=== PATIENT | male | born 1975 | race Caucasian/White ===

== ENCOUNTER 2017-06-08 12:15 | Emergency (ER) | payer MEDICAID, OTHER ==
--- NOTE | 2017-06-08 14:14 | EDM.PDOC ---
ED HPI GENERAL MEDICAL PROBLEM - General Chief Complaint: Upper Extremity Injury/Pain Stated Complaint: RIGHT WRIST PAIN Time Seen by Provider: 06/08/17 12:21 Source of Information: Reports: Patient History Limitations: Reports: No Limitations - History of Present Illness INITIAL COMMENTS - FREE TEXT/NARRATIVE: HISTORY AND PHYSICAL: []42-year-old male presenting with right wrist pain History of Present Illness: []Patient had a fall and has had pain since. he fell last night Review of Systems: As per history of present illness and below otherwise all systems reviewed and negative. Past medical history: As per history of present illness and as reviewed below otherwise noncontributory. Surgical history: As per history of present illness and as reviewed below otherwise noncontributory. Social history: No reported history of drug or alcohol abuse. Family history: As per history of present illness and as reviewed below otherwise noncontributory. Physical exam: Alert and oriented male in questions appropriately he does look nontoxic HEENT: Atraumatic, normocehpalic, pupils reactive, negative for conjunctival pallor or scleral icterus, mucous membranes moist, throat clear, neck supple, nontender, trachea midline. Lungs: Clear to auscultation, breath sounds equal bilaterally, chest non tender. Heart: S1S2, regular, negative for clicks, rubs, or JVD. Abdomen: Soft, nondistended, nontender. Negative for masses or hepatossplenmegaly. Negative for costovertebral tenderness. Pelvis: Stable nontender. Genitourinary: Deferred. Rectal: Deferred Extremities: , negative for cords or calf pain. Radial pulse intact sensation is intact Refill less than 3 seconds Neurovascular unremarkable. Neuro: Awake, alert, oriented. Cranial nerves II through XII unremarkable. Cerebellum unremarkable. Motor and sensory unremarkable throughout. Exam nonfocal. Diagnostics: [X-ray] Therapeutics: [] Impression: [Contusion right wrist] Plan: [Splint will be applied to give support Motrin for discomfort Follow-up in [place] this week ] Definitive disposition and diagnosis as appropriate pending reevaluation and review of above. right wrist Pain Score (Numeric/FACES): 6 - Related Data Allergies Allergy/AdvReac Type Severity Reaction Status Date / Time No Known Allergies Allergy Verified 06/08/17 12:45 Home Meds: Home Meds Acetaminophen [Tylenol] 1,000 mg PO BID 06/16/14 [History] Past Medical History - Past Health History Medical/Surgical History: Denies Medical/Surgical History HEENT History: Reports: None Cardiovascular History: Reports: Hypertension Respiratory History: Reports: None Gastrointestinal History: Reports: None Genitourinary History: Reports: None Neurological History: Reports: None Psychiatric History: Reports: None Endocrine/Metabolic History: Reports: None Hematologic History: Reports: None Oncologic (Cancer) History: Reports: None Dermatologic History: Reports: None - Infectious Disease History Infectious Disease History: Reports: None - Past Surgical History Head Surgeries/Procedures: Reports: None HEENT Surgical History: Reports: None Musculoskeletal Surgical History: Reports: Other (See Below) Social & Family History - Family History Family Medical History: Noncontributory - Tobacco Use Smoking Status *Q: Never Smoker Second Hand Smoke Exposure: No - Alcohol Use Days Per Week of Alcohol Use: 0 - Recreational Drug Use Recreational Drug Use: No Review of Systems - Review of Systems Review Of Systems: ROS reveals no pertinent complaints other than HPI. ED EXAM, GENERAL - Physical Exam Exam: See Below (See dictation) Course - Vital Signs Last Recorded V/S: Last Vital Signs Temp 36.1 C 06/08/17 12:15 Pulse 107 H 06/08/17 12:15 Resp 18 06/08/17 12:15 BP 138/89 06/08/17 12:15 Pulse Ox 94 L 06/08/17 12:15 - Orders/Labs/Meds Orders: Active Orders 24 hr Category Date Time Status Wrist 2V Rt [CR] Stat Exams 06/08/17 12:43 Taken Departure - Departure Time of Disposition: 14:11 Disposition: Home, Self-Care 01 Condition: Good Clinical Impression: Contusion of right wrist, initial encounter - Discharge Information Instructions: Cast or Splint Care, [id number] Referrals: PCP,Unknown [Primary Care Provider] - Additional Instructions: The following information is given to patients seen in the emergency department who are being discharged to home. This information is to outline your options for follow-up care. We provide all patients seen in our emergency department with a follow-up referral. The need for follow-up, as well as the timing and circumstances, are variable depending upon the specifics of your emergency department visit. If you don't have a primary care physician on staff, we will provide you with a referral. We always advise you to contact your personal physician following an emergency department visit to inform them of the circumstance of the visit and for follow-up with them and/or the need for any referrals to a consulting specialist. The emergency department will also refer you to a specialist when appropriate. This referral assures that you have the opportunity for followup care with a specialist. All of these measure are taken in an effort to provide you with optimal care, which includes your followup. Under all circumstances we always encourage you to contact your private physician who remains a resource for coordinating your care. When calling for followup care, please make the office aware that this follow-up is from your recent emergency room visit. If for any reason you are refused follow-up, please contact the [facility] emergency department at and asked to speak to the emergency department charge nurse. Splint has been applied please keep this on for support Motrin for discomfort as directed on bottle Follow-up in [place] next week - My Orders Last 24 Hours: My Active Orders 06/08/17 12:43 Wrist 2V Rt [CR] Stat - Assessment/Plan Last 24 Hours: My Active Orders 06/08/17 12:43 Wrist 2V Rt [CR] Stat
[2017-06-08 14:34] VITALS: BP 137/98
--- NOTE | 2017-06-08 16:49 | CR ---
EXAM DATE: 06/08/17 PATIENT'S AGE: 42 Patient: RADHA OCHOA Facility: [place], [place] Site . Site : 1975 Study: XRay Extremity [id number] 1:40:46 PM Ordering Physician: Doctor Seals Final Report: INDICATION: Pain. Technique: Two views right wrist Findings: The right index finger has been amputated or is absent. Soft tissue swelling in the right hand between the right thumb and middle finger. Small lucency in 1 of the radial carpal bones benign. Mild soft tissue swelling right wrist dorsally. No acute fracture or dislocation in visualized right wrist or hand. Minimal degenerative change right wrist. Remainder negative. Dictated by Kenton Harman MD @ Jun 08 2017 1:43PM (Electronic Signature) Report Signed by Proxy. CANDELARIO
== END 2017-06-08 14:34 | disposition home or self-care (01) ==
LOC: MW.ED 12:15
DX: S60.211A Contusion of right wrist, initial encounter (principal); I10 Essential (primary) hypertension; W19.XXXA Unspecified fall, initial encounter
CPT/HCPCS: 73100-26-RT; 73100-RT; 99282; 99283

== ENCOUNTER 2017-07-27 16:54 | Emergency (ER) | payer MEDICAID ==
[2017-07-27 17:09] VITALS: BP 142/89
[2017-07-27] MEDS ORDERED: Bacitracin Oint 1 GM U/D Packet TOP ONE (17:28)
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
== END 2017-07-27 17:47 | disposition home or self-care (01) ==
LOC: MW.ED 16:54
DX: S61.512A Laceration without foreign body of left wrist, initial encounter (principal); I10 Essential (primary) hypertension; Z79.899 Other long term (current) drug therapy; W26.0XXA Contact with knife, initial encounter
CPT/HCPCS: 99282

== ENCOUNTER 2023-09-12 14:47 | Emergency (ER) | payer SELFPAY ==
[2023-09-12 16:24] LABS: APPEARANCE,URINE SLT CLOUDY; BILIRUBIN,URINE NEGATIVE (NEGATIVE); COLOR,URINE YELLOW; GLUCOSE,URINE NEGATIVE (NEGATIVE); KETONES,URINE NEGATIVE (NEGATIVE); LEUKOCYTE ESTERASE,URINE SMALL (NEGATIVE); NITRITE,URINE POSITIVE (NEGATIVE); OCCULT BLOOD,URINE LARGE (NEGATIVE); PROTEIN,URINE 30 mg/dL (NEGATIVE); UROBILINOGEN,URINE 0.2 EU/dL (<2.0)
[2023-09-12 16:31] LABS: BACTERIA,URINE 2+ (NEGATIVE); EPITHELIAL CELLS,URINE NOT SEEN (NONE-FEW); MUCUS,URINE LIGHT (NONE-MOD); RBC,URINE 25-30 (0-2/HPF)
[2023-09-12] MEDS ORDERED: Sodium Chloride 0.9% 10 ML Syringe FLUSH PRN (17:29)
[2023-09-12] MEDS ORDERED: Sodium Chloride 0.9% 2.5 ML Syringe FLUSH PRN (17:29)
[2023-09-12] MEDS ORDERED: Levofloxacin/Dextrose 5%-Water 750 MG in Premix Bag 1 BAG IV ONE (17:31)
[2023-09-12 18:07] LABS: BASOPHILS PERCENT AUTO 0.7 % (0.0-1.0); EOSINOPHILS ABSOLUTE AUTO 0.38 K/uL (0.00-0.45); EOSINOPHILS PERCENT AUTO 2.6 % (0.0-6.0); HEMATOCRIT 49.3 % (42.0-52.0); HEMOGLOBIN 16.4 g/dL (14.0-18.0); IMMATURE GRAN ABSOLUTE AUTO 0.08 K/uL (0.00-0.05); IMMATURE GRAN PERCENT AUTO 0.5 % (0.0-0.4); LYMPHOCYTES ABSOLUTE AUTO 1.88 K/uL (1.00-4.80); LYMPHOCYTES PERCENT AUTO 12.6 % (24.0-44.0); MEAN CORPUSCULAR HEMOGLOBIN 29.9 pg (28.0-32.0); MEAN CORPUSCULAR HGB CONC 33.3 g/dL (32.0-36.0); MEAN PLATELET VOLUME 9.2 fL (9.4-12.4); MONOCYTES ABSOLUTE AUTO 1.32 K/uL (0.00-0.80); MONOCYTES PERCENT AUTO 8.9 % (0.0-8.0); NEUTROPHILS ABSOLUTE AUTO 11.13 K/uL (1.80-7.70); NEUTROPHILS PERCENT AUTO 74.7 % (41.0-71.0); PLATELET COUNT,PLT 220 K/uL (150-400); RED BLOOD CELL COUNT 5.48 M/uL (4.52-5.90); WHITE BLOOD CELL COUNT,WBC 14.89 K/uL (3.9-11.3)
[2023-09-12 18:33] LABS: D-DIMER QUANTITATIVE 0.73 mg/L FEU (0.00-0.50); INR 1.05 (0.86-1.11)
[2023-09-12 19:04] LABS: A/G RATIO 0.8 (0.9-1.6); ALBUMIN 3.4 g/dL (3.4-5.0); BILIRUBIN TOTAL 0.4 mg/dL (0.2-1.0); CALCIUM 9.1 mg/dL (8.5-10.1); CARBON DIOXIDE,CO2 31.5 mmol/L (21.0-32.0); CREATININE 1.4 mg/dL (0.8-1.3); EST CRCL DRUG DOSING (CG) 67.23 mL/min; PROTEIN TOTAL,TP 7.8 g/dL (6.4-8.2)
[2023-09-12 19:07] LABS: LACTIC ACID 0.9 mmol/L (0.4-2.0)
[2023-09-12] MEDS ORDERED: Iopamidol 755 MG/ML 500 ML Multipack Bottle IVPUSH ONE (19:24)
[2023-09-12] MEDS ORDERED: Morphine 4 MG/ML Syringe IVPUSH ONE (22:56)
[2023-09-12 23:50] VITALS: BP 168/117; PULSE 102
== END 2023-09-12 23:49 | disposition home or self-care (01) ==
LOC: MW.ED 14:47
DX: N12 Tubulo-interstitial nephritis, not specified as acute or chronic (principal); I10 Essential (primary) hypertension; Z79.899 Other long term (current) drug therapy; Z79.2 Long term (current) use of antibiotics
CPT/HCPCS: 36415; 71045; 71275; 74176; 80053; 81001; 83605; 83690; 83880; 85025; 85379; 85610; 87086; 96365; 96375; 99284; J1956; J2270; J3490; Q9967; 87088; 87186